=== PATIENT | male | born 1940 | race Caucasian/White ===

== ENCOUNTER 2018-08-25 11:00 | Inpatient (IN) ==
[2018-08-25 12:22] LABS: Basophils % 0.5 % (0.0-0.8); Eosinophils # 0.2 10*3/uL (0.0-0.87); Eosinophils % 4.2 % (0.00-10.9); Hematocrit 42.8 VOL% (42.0-52.0); Hemoglobin 14.7 GM/DL (14.0-18.0); Immature Granulocytes % 0.2 %; Immature Granulocytes Absolute 0.01 #; Lymphocytes % 18.6 % (21.2-54.2); Mean Corpuscular HGB Conc 34.3 GM/DL (32-36); Mean Corpuscular Hemoglobin 33 PG (27-34); Mean Corpuscular Volume 96.2 FL (87-102); Mean Platelet Volume 10.1 FL (9.6-12.0); Monocytes # 0.5 10*3/uL (0.11-0.8); Monocytes % 9.4 % (1.7-12.7); Neutrophils # 3.7 10*3/uL (1.4-7.4); Neutrophils % 67.1 % (38.7-73.9); Platelet Count 279 T/CUMM (130-400); Red Blood Count 4.45 MC/CUMM (3.8-5.5); Red Cell Distribution Width 12.4 % (9.3-17.3); White Blood Count 5.5 T/CUMM (4-12)
[2018-08-25 12:34] LABS: INR 0.9; PT Patient Result 9.4 SECS; Partial Thromboplastin Time 26.4 SECS (0-40)
[2018-08-25] MEDS ORDERED: methylPREDNISolone SOD SUC 125 MG/2 ML VIAL IV STA (13:27)
[2018-08-25] MEDS ORDERED: ALBUTEROL NEB SOLN 5 MG/ML 20 ML/BOTTLE CONT NEB STA (13:27)
[2018-08-25] MEDS ORDERED: THIAMINE INJ 100 MG, FOLIC ACID INJ 1 MG, MAGNESIUM SULF INJ 2 GM, MULTIVITAMIN INJ 10 ... IV ONE (13:57)
[2018-08-25 14:04] LABS: Albumin 3.1 G/DL (3.4-5.0); Bilirubin,Total 0.6 MG/DL (0.2-1.0); Calcium 8.8 MG/DL (8.5-10.1); Osmolality,Calculated 283.1 MOS/KG (273-304); Potassium 3.4 MMOL/L (3.5-5.1); Total Protein 7.3 G/DL (6.4-8.3)
[2018-08-25] MEDS ORDERED: LEVOFLOXACIN INJ 500 MG in PREMIX 1 EACH IV STA (14:12)
[2018-08-25 14:16] LABS: ABG Base Excess 7.2 MMOL/L (-2.5-2.5); ABG HCO3 30.7 MMOL/L (20-26); ABG Oxygen Saturation 92.7 % (95-100); ABG PCO2 39.4 MM HG (35-48); ABG PO2 68.9 MM HG (80-95); ABG TCO2 31.9 MMOL/L (23-27)
[2018-08-25] MEDS ORDERED: ACETAMINOPHEN 325 MG TABLET PO PRN (16:25)
[2018-08-25] MEDS ORDERED: SODIUM CHLORIDE 0.9% 1,000 ML IV SCH (16:25)
[2018-08-25] MEDS ORDERED: ONDANSETRON 4 MG/2 ML VIAL IV PRN (16:25)
[2018-08-25] MEDS ORDERED: cloNIDine 0.1 MG TABLET PO ONE (17:35)
[2018-08-25] MEDS ORDERED: MAGNESIUM SULF RIDER 1 GM in PREMIX 1 EACH IV STA (17:42)
[2018-08-25] MEDS ORDERED: cefTRIAXone 1,000 MG VIAL IV SCH (18:00)
[2018-08-25] MEDS ORDERED: INFLUENZA VIRUS VACCINE 0.5 ML SYRINGE IM ONE (18:24)
[2018-08-25] MEDS: cefTRIAXone 1,000 MG in SYRINGE 1 EACH IV SCH (18:42)
[2018-08-25] MEDS: ALBUTEROL/IPRATROPIUM 3 ML NEB RESP TX SCH ×2 (19:30→23:06)
[2018-08-25] MEDS: POTASSIUM CHLORIDE IV SCH (19:49)
[2018-08-25] MEDS: MAGNESIUM SULF IV SCH (19:49)
[2018-08-25] MEDS: [UNRECOGNIZED DRUG - OTHER] IV SCH (19:49)
[2018-08-25] MEDS: methylPREDNISolone SOD SUC 40 MG/1 ML VIAL IV SCH (20:18)
[2018-08-25] MEDS: CLORAZEPATE 7.5 MG TABLET PO SCH (20:18)
[2018-08-25] MEDS: DOCUSATE SODIUM 100 MG CAPSULE PO SCH (20:21)
[2018-08-25 22:19] LABS: Apearance,Urine Slightly Hazy (Clear); Bacteria,Urine Occasional /HPF (Few); Bilirubin,Urine Negative (Negative); Blood, Urine Small mg/dL (Negative); Glucose,Urine (UA) >=500 mg/dL (Negative); Hyaline Casts,Urine 11 /LPF (0-3); Ketones,Urine 5 mg/dL (Negative); Mucus,Urine Occasional /LPF (Occasional); Nitrite,Urine Positive (Negative); Protein,Urine 30 MG/DL; RBC,Urine 3 /HPF (0-4); Squamous Epithelial Cell,Urine Occasional /HPF (0-10); Urine Color Yellow (Yellow); WBC,Urine 41 /HPF (0-6)
[2018-08-26] MEDS: LORazepam 2 MG/1 ML VIAL IV PRN ×2 (01:18→20:11)
[2018-08-26] MEDS: ALBUTEROL/IPRATROPIUM 3 ML NEB RESP TX SCH ×6 (03:54→23:20)
[2018-08-26] MEDS: methylPREDNISolone SOD SUC 40 MG/1 ML VIAL IV SCH ×3 (04:21→20:13)
[2018-08-26] MEDS: MAGNESIUM SULF IV SCH ×2 (04:25→17:41)
[2018-08-26] MEDS: [UNRECOGNIZED DRUG - OTHER] IV SCH ×2 (04:25→17:41)
[2018-08-26] MEDS: POTASSIUM CHLORIDE IV SCH ×2 (04:25→17:41)
[2018-08-26 05:30] LABS: Hematocrit 34.3 VOL% (42.0-52.0); Immature Granulocytes % 0.4 %; Immature Granulocytes Absolute 0.02 #; Lymphocytes # 0.2 10*3/uL (1.4-4.0); Lymphocytes % 5.1 % (21.2-54.2); Mean Corpuscular Hemoglobin 33 PG (27-34); Mean Corpuscular Volume 95.5 FL (87-102); Mean Platelet Volume 10.6 FL (9.6-12.0); Monocytes # 0.3 10*3/uL (0.11-0.8); Monocytes % 6.4 % (1.7-12.7); Neutrophils % 88.1 % (38.7-73.9); Platelet Count 234 T/CUMM (130-400); Red Blood Count 3.59 MC/CUMM (3.8-5.5); Red Cell Distribution Width 12.2 % (9.3-17.3); White Blood Count 4.5 T/CUMM (4-12)
[2018-08-26 06:08] LABS: Albumin 2.5 G/DL (3.4-5.0); Bilirubin,Total 0.7 MG/DL (0.2-1.0); Calcium 7.6 MG/DL (8.5-10.1); Total Protein 6.2 G/DL (6.4-8.3)
[2018-08-26 06:09] LABS: Potassium 3.1 MMOL/L (3.5-5.1)
[2018-08-26] MEDS: POTASSIUM CHLORIDE 20 MEQ TABLET PO PRN ×4 (08:52→20:11)
[2018-08-26] MEDS: CYANOCOBALAMIN 500 MCG TABLET PO SCH (08:52)
[2018-08-26] MEDS: CLORAZEPATE 7.5 MG TABLET PO SCH ×3 (08:52→20:11)
[2018-08-26] MEDS: hydroCHLOROthiazide 25 MG TABLET PO SCH (08:53)
[2018-08-26] MEDS: LOSARTAN 50 MG TABLET PO SCH (08:53)
[2018-08-26] MEDS: DOCUSATE SODIUM 100 MG CAPSULE PO SCH (08:53)
[2018-08-26] MEDS: FOLIC ACID 1 MG TABLET PO SCH (08:53)
[2018-08-26] MEDS: PANTOPRAZOLE 40 MG TABLET PO SCH (08:54)
[2018-08-26] MEDS: THIAMINE 200 MG/2 ML VIAL IV SCH (08:54)
[2018-08-26 11:00] LABS: Free T4 (Free Thyroxine) 0.76 NG/DL (0.76-1.46); Thyroid Stimulating Hormone 0.488 uIU/ml (0.358-3.74)
[2018-08-26] MEDS: THEOPHYLLINE ER (24 HR) 200 MG CAPSULE PO SCH ×2 (12:27)
[2018-08-26] MEDS: MONTELUKAST 10 MG TABLET PO SCH (12:27)
[2018-08-26 12:50] LABS: Folate > 24.0 NG/ML (5.4-24.0); Vitamin B12 1638 PG/ML (211-911)
[2018-08-26] MEDS: cefTRIAXone 1,000 MG in SYRINGE 1 EACH IV SCH (17:34)
[2018-08-27] MEDS: ALBUTEROL/IPRATROPIUM 3 ML NEB RESP TX SCH ×2 (03:13→07:25)
[2018-08-27] MEDS: [UNRECOGNIZED DRUG - OTHER] IV SCH (05:27)
[2018-08-27] MEDS: MAGNESIUM SULF IV SCH (05:27)
[2018-08-27] MEDS: POTASSIUM CHLORIDE IV SCH (05:27)
[2018-08-27] MEDS: DOCUSATE SODIUM 100 MG CAPSULE PO SCH ×2 (05:27→08:52)
[2018-08-27] MEDS: methylPREDNISolone SOD SUC 40 MG/1 ML VIAL IV SCH (05:28)
[2018-08-27] MEDS: CLORAZEPATE 7.5 MG TABLET PO SCH (08:51)
[2018-08-27] MEDS: PANTOPRAZOLE 40 MG TABLET PO SCH (08:51)
[2018-08-27] MEDS: LOSARTAN 50 MG TABLET PO SCH (08:51)
[2018-08-27] MEDS: THIAMINE 200 MG/2 ML VIAL IV SCH (08:51)
[2018-08-27] MEDS: hydroCHLOROthiazide 25 MG TABLET PO SCH (08:51)
[2018-08-27] MEDS: CYANOCOBALAMIN 500 MCG TABLET PO SCH (08:51)
[2018-08-27] MEDS: MONTELUKAST 10 MG TABLET PO SCH (08:51)
[2018-08-27] MEDS: FOLIC ACID 1 MG TABLET PO SCH (08:52)
[2018-08-27 10:36] VITALS: BP 151/65
== END 2018-08-27 10:50 | disposition home health service (06) | DRG 192 ==
LOC: N.ED 11:00 → N.EDINP 14:09 → N.4E 15:00
PROVIDERS: ADMIT Family Medicine; ATTEND Family Medicine

== ENCOUNTER 2018-12-12 17:02 | Observation (INO) ==
[2018-12-12] MEDS ORDERED: LEVALBUTEROL 1.25 MG/3 ML NEB RESP TX STA (17:36)
[2018-12-12] MEDS ORDERED: methylPREDNISolone SOD SUC 40 MG/1 ML VIAL IV STA (17:36)
[2018-12-12 18:09] LABS: Basophils % 0.3 % (0.0-0.8); Eosinophils % 0.1 % (0.00-10.9); Hematocrit 37.2 VOL% (42.0-52.0); Immature Granulocytes % 0.5 %; Immature Granulocytes Absolute 0.05 #; Lymphocytes # 0.6 10*3/uL (1.4-4.0); Lymphocytes % 5.3 % (21.2-54.2); Mean Corpuscular HGB Conc 34.9 GM/DL (32-36); Mean Corpuscular Hemoglobin 35 PG (27-34); Mean Corpuscular Volume 99.2 FL (87-102); Mean Platelet Volume 10.9 FL (9.6-12.0); Monocytes # 0.9 10*3/uL (0.11-0.8); Monocytes % 8.1 % (1.7-12.7); Neutrophils # 9.3 10*3/uL (1.4-7.4); Neutrophils % 85.7 % (38.7-73.9); Platelet Count 253 T/CUMM (130-400); Red Blood Count 3.75 MC/CUMM (3.8-5.5); Red Cell Distribution Width 13.4 % (9.3-17.3); White Blood Count 10.9 T/CUMM (4-12)
[2018-12-12] MEDS ORDERED: cefTRIAXone 1,000 MG in SODIUM CHLORIDE 0.9% 100 ML IV STA (18:35)
[2018-12-12] MEDS ORDERED: AZITHROMYCIN INJ 500 MG in SODIUM CHLORIDE 0.9% 250 ML IV STA (18:36)
[2018-12-12] MEDS ORDERED: ACETAMINOPHEN 325 MG TABLET PO PRN (18:41)
[2018-12-12] MEDS ORDERED: ONDANSETRON 4 MG/2 ML VIAL IV PRN (18:41)
[2018-12-12 18:43] LABS: Calcium 8.9 MG/DL (8.5-10.1); Osmolality,Calculated 270.2 MOS/KG (273-304); Potassium 5.9 MMOL/L (3.5-5.1)
[2018-12-12] MEDS: ALBUTEROL 2.5 MG/3 ML NEB RESP TX PRN ×2 (20:00→23:28)
[2018-12-12] MEDS: LORazepam 2 MG/1 ML VIAL IV SCH (20:59)
[2018-12-12] MEDS: DEXTROSE 5% NACL 0.9% 1,000 ML IV SCH (20:59)
[2018-12-12] MEDS: DOCUSATE SODIUM 100 MG CAPSULE PO SCH (21:01)
[2018-12-13] MEDS: LORazepam 2 MG/1 ML VIAL IV SCH ×4 (01:02→13:32)
[2018-12-13] MEDS: ALBUTEROL 2.5 MG/3 ML NEB RESP TX PRN (03:29)
[2018-12-13] MEDS: DEXTROSE 5% NACL 0.9% 1,000 ML IV SCH (05:05)
[2018-12-13] MEDS: ALBUTEROL 2.5 MG/3 ML NEB RESP TX SCH ×5 (07:31→23:21)
[2018-12-13] MEDS: DOCUSATE SODIUM 100 MG CAPSULE PO SCH ×2 (09:17→21:01)
[2018-12-13] MEDS: PANTOPRAZOLE 40 MG TABLET PO SCH (09:18)
[2018-12-13] MEDS: methylPREDNISolone SOD SUC 125 MG/2 ML VIAL IV SCH ×2 (09:59→20:59)
[2018-12-13] MEDS ORDERED: CHOLESTYRAMINE/ASPARTAME 4 GM PACK PO PRN (10:06)
[2018-12-13] MEDS ORDERED: ALBUTEROL/IPRATROPIUM 3 ML NEB RESP TX PRN (10:06)
[2018-12-13] MEDS ORDERED: hydrALAZINE 20 MG/1 ML VIAL IV PRN (10:09)
[2018-12-13 10:33] LABS: Basophils % 0.1 % (0.0-0.8); Hematocrit 32.9 VOL% (42.0-52.0); Hemoglobin 11.3 GM/DL (14.0-18.0); Immature Granulocytes % 0.3 %; Immature Granulocytes Absolute 0.02 #; Lymphocytes # 0.7 10*3/uL (1.4-4.0); Lymphocytes % 9.5 % (21.2-54.2); Mean Corpuscular HGB Conc 34.3 GM/DL (32-36); Mean Corpuscular Hemoglobin 34 PG (27-34); Mean Corpuscular Volume 99.1 FL (87-102); Mean Platelet Volume 10.7 FL (9.6-12.0); Monocytes # 0.6 10*3/uL (0.11-0.8); Monocytes % 9.1 % (1.7-12.7); Neutrophils # 5.7 10*3/uL (1.4-7.4); Platelet Count 196 T/CUMM (130-400); Red Blood Count 3.32 MC/CUMM (3.8-5.5); Red Cell Distribution Width 13.2 % (9.3-17.3); White Blood Count 7.1 T/CUMM (4-12)
[2018-12-13 10:56] LABS: Calcium 8.2 MG/DL (8.5-10.1); Potassium 3.7 MMOL/L (3.5-5.1)
[2018-12-13] MEDS: cefTRIAXone 1,000 MG in SYRINGE 1 EACH IV SCH (17:23)
[2018-12-13] MEDS: AZITHROMYCIN INJ 250 MG in SODIUM CHLORIDE 0.9% 250 ML IV SCH (17:24)
[2018-12-13] MEDS: SODIUM CHLORIDE 0.9% 1,000 ML IV SCH (17:25)
[2018-12-13] MEDS ORDERED: PRIMIDONE 50 MG TABLET PO SCH (21:00)
[2018-12-13] MEDS: MAGNESIUM OXIDE 400 MG TABLET PO SCH (21:00)
[2018-12-13] MEDS: LORazepam 2 MG/1 ML VIAL IV PRN (21:00)
[2018-12-13] MEDS: busPIRone 10 MG TABLET PO SCH (21:00)
[2018-12-14] MEDS: ALBUTEROL 2.5 MG/3 ML NEB RESP TX SCH ×6 (03:37→23:06)
[2018-12-14 05:35] LABS: Basophils % 0.1 % (0.0-0.8); Hematocrit 32.5 VOL% (42.0-52.0); Hemoglobin 11.1 GM/DL (14.0-18.0); Immature Granulocytes % 0.7 %; Immature Granulocytes Absolute 0.06 #; Lymphocytes # 0.3 10*3/uL (1.4-4.0); Lymphocytes % 3.4 % (21.2-54.2); Mean Corpuscular HGB Conc 34.2 GM/DL (32-36); Mean Corpuscular Hemoglobin 34 PG (27-34); Mean Corpuscular Volume 99.4 FL (87-102); Mean Platelet Volume 10.7 FL (9.6-12.0); Monocytes # 0.4 10*3/uL (0.11-0.8); Monocytes % 4.7 % (1.7-12.7); Neutrophils # 7.9 10*3/uL (1.4-7.4); Neutrophils % 91.1 % (38.7-73.9); Platelet Count 212 T/CUMM (130-400); Red Blood Count 3.27 MC/CUMM (3.8-5.5); Red Cell Distribution Width 13.1 % (9.3-17.3); White Blood Count 8.6 T/CUMM (4-12)
[2018-12-14] MEDS: SODIUM CHLORIDE 0.9% 1,000 ML IV SCH (05:44)
[2018-12-14 06:00] LABS: Calcium 8.4 MG/DL (8.5-10.1); Osmolality,Calculated 284.5 MOS/KG (273-304)
[2018-12-14 06:29] LABS: Band Neutrophils 11 % (0-10); Lymphocytes 6 % (20-55); Platelet Estimate Normal; Segmented Neutrophils 78 % (50-85); Total Cells Counted 100
[2018-12-14 06:30] LABS: Anisocytosis Slight; Macrocytosis 1+
[2018-12-14] MEDS: PANTOPRAZOLE 40 MG TABLET PO SCH (11:41)
[2018-12-14] MEDS: busPIRone 10 MG TABLET PO SCH ×2 (11:41→20:21)
[2018-12-14] MEDS: LOSARTAN 50 MG TABLET PO SCH (11:41)
[2018-12-14] MEDS: MAGNESIUM OXIDE 400 MG TABLET PO SCH ×2 (11:41→20:21)
[2018-12-14] MEDS: LORazepam 2 MG/1 ML VIAL IV PRN ×2 (11:41→23:49)
[2018-12-14] MEDS: ASPIRIN EC 81 MG TABLET PO SCH (11:42)
[2018-12-14] MEDS: methylPREDNISolone SOD SUC 125 MG/2 ML VIAL IV SCH ×2 (11:42→20:21)
[2018-12-14] MEDS: DOCUSATE SODIUM 100 MG CAPSULE PO SCH ×2 (11:42→20:21)
[2018-12-14 15:27] LABS: Folate 13.5 NG/ML (5.4-24.0)
[2018-12-14] MEDS: AZITHROMYCIN INJ 250 MG in SODIUM CHLORIDE 0.9% 250 ML IV SCH (18:00)
[2018-12-14] MEDS: cefTRIAXone 1,000 MG in SYRINGE 1 EACH IV SCH (18:00)
[2018-12-14] MEDS ORDERED: traZODone 50 MG TABLET PO PRN (19:10)
[2018-12-14] MEDS: PRIMIDONE 50 MG TABLET PO SCH (20:25)
[2018-12-15] MEDS: SODIUM CHLORIDE 0.9% 1,000 ML IV SCH (02:38)
[2018-12-15] MEDS: ALBUTEROL 2.5 MG/3 ML NEB RESP TX SCH ×4 (03:10→14:05)
[2018-12-15] MEDS ORDERED: LORazepam 2 MG/1 ML VIAL IV ONE (07:10)
[2018-12-15] MEDS: methylPREDNISolone SOD SUC 125 MG/2 ML VIAL IV SCH (10:39)
[2018-12-15] MEDS: MAGNESIUM OXIDE 400 MG TABLET PO SCH (10:40)
[2018-12-15] MEDS: MEGESTROL 400 MG/10 ML UDCUP PO SCH ×2 (10:40→10:43)
[2018-12-15] MEDS: DOCUSATE SODIUM 100 MG CAPSULE PO SCH (10:40)
[2018-12-15] MEDS: ASPIRIN EC 81 MG TABLET PO SCH (10:40)
[2018-12-15] MEDS: PANTOPRAZOLE 40 MG TABLET PO SCH (10:40)
[2018-12-15] MEDS: busPIRone 10 MG TABLET PO SCH (10:40)
[2018-12-15] MEDS: LOSARTAN 50 MG TABLET PO SCH (10:41)
[2018-12-15] MEDS: PRIMIDONE 50 MG TABLET PO SCH (10:41)
[2018-12-15 11:50] VITALS: BP 163/67
[2018-12-15] MEDS ORDERED: ZALEPLON 5 MG CAPSULE PO SCH (21:00)
== END 2018-12-15 15:18 | disposition home or self-care (01) ==
LOC: N.ED 17:02 → N.EDINP 17:02 → N.2E 19:15
PROVIDERS: ADMIT Family Medicine; ATTEND Family Medicine

== ENCOUNTER 2018-12-31 13:38 | Inpatient (IN) ==
[2018-12-31] MEDS ORDERED: ONDANSETRON 4 MG/2 ML VIAL IV PRN (17:21)
[2018-12-31] MEDS ORDERED: ACETAMINOPHEN 325 MG TABLET PO PRN (17:21)
[2018-12-31] MEDS: LORazepam 2 MG/1 ML VIAL IV PRN ×2 (17:58→20:53)
[2018-12-31 18:21] LABS: Basophils % 0.3 % (0.0-0.8); Eosinophils # 0.1 10*3/uL (0.0-0.87); Hematocrit 38.1 VOL% (42.0-52.0); Hemoglobin 13.1 GM/DL (14.0-18.0); Immature Granulocytes % 0.3 %; Immature Granulocytes Absolute 0.02 #; Lymphocytes # 1.4 10*3/uL (1.4-4.0); Lymphocytes % 19.8 % (21.2-54.2); Mean Corpuscular HGB Conc 34.4 GM/DL (32-36); Mean Corpuscular Hemoglobin 35 PG (27-34); Mean Corpuscular Volume 101.6 FL (87-102); Mean Platelet Volume 10.8 FL (9.6-12.0); Monocytes # 0.8 10*3/uL (0.11-0.8); Monocytes % 11.7 % (1.7-12.7); Neutrophils # 4.6 10*3/uL (1.4-7.4); Neutrophils % 66.9 % (38.7-73.9); Platelet Count 244 T/CUMM (130-400); Red Blood Count 3.75 MC/CUMM (3.8-5.5); Red Cell Distribution Width 13.7 % (9.3-17.3); White Blood Count 6.8 T/CUMM (4-12)
[2018-12-31 18:30] LABS: Albumin 3.2 G/DL (3.4-5.0); Bilirubin,Total 0.6 MG/DL (0.2-1.0); Calcium 8.7 MG/DL (8.5-10.1); Potassium 3.8 MMOL/L (3.5-5.1); Total Protein 6.4 G/DL (6.4-8.3)
[2018-12-31] MEDS ORDERED: THIAMINE INJ 100 MG, FOLIC ACID INJ 1 MG, MAGNESIUM SULF INJ 2 GM, MULTIVITAMIN INJ 10 ... IV ONE (18:30)
[2018-12-31] MEDS: ALBUTEROL/IPRATROPIUM 3 ML NEB RESP TX SCH (19:20)
[2018-12-31] MEDS: DOCUSATE SODIUM 100 MG CAPSULE PO SCH (20:35)
[2018-12-31] MEDS: busPIRone 15 MG TABLET PO SCH (20:35)
[2018-12-31] MEDS: MAGNESIUM OXIDE 400 MG TABLET PO SCH (20:35)
[2018-12-31] MEDS: ENOXAPARIN 40 MG/0.4 ML SYRINGE SUBCUT SCH (20:37)
[2019-01-01] MEDS: SODIUM CHLORIDE 0.45% 1,000 ML IV SCH ×3 (02:18→19:46)
[2019-01-01] MEDS: LORazepam 2 MG/1 ML VIAL IV PRN (02:19)
[2019-01-01 03:10] LABS: Apearance,Urine Slightly Hazy (Clear); Bilirubin,Urine Negative (Negative); Blood, Urine Negative (Negative); Glucose,Urine (UA) Negative (Negative); Hyaline Casts,Urine 1 /LPF (0-3); Ketones,Urine Negative (Negative); Mucus,Urine Occasional /LPF (Occasional); Nitrite,Urine Negative (Negative); Protein,Urine Negative; RBC,Urine 3 /HPF (0-4); Squamous Epithelial Cell,Urine Occasional /HPF (0-10); Urine Color Amber (Yellow); Urine Specific Gravity 1.024 (1.001-1.035); WBC,Urine 2 /HPF (0-6)
[2019-01-01 04:55] LABS: Barbiturates Screen,Urine Positive (Negative); Benzodiazepines Screen,Urine Negative (Negative); Cannabinoid Screen,Urine Positive (Negative); Opiate Screen,Urine Negative (Negative); Phencyclidine Screen,Urine Negative (Negative)
[2019-01-01] MEDS: ALBUTEROL/IPRATROPIUM 3 ML NEB RESP TX SCH ×2 (07:03→20:40)
[2019-01-01] MEDS ORDERED: DICYCLOMINE 10 MG CAPSULE PO PRN (07:30)
[2019-01-01] MEDS ORDERED: HydrOXYzine PAMOATE 25 MG CAPSULE PO PRN (07:30)
[2019-01-01] MEDS ORDERED: METHOCARBAMOL 500 MG TABLET PO PRN (07:30)
[2019-01-01] MEDS: LORazepam 1 MG TABLET PO SCH ×3 (08:26→17:54)
[2019-01-01] MEDS ORDERED: LORazepam 0.5 MG TABLET PO ONE (08:30)
[2019-01-01] MEDS: DOCUSATE SODIUM 100 MG CAPSULE PO SCH ×2 (08:50→21:37)
[2019-01-01] MEDS: FOLIC ACID 1 MG TABLET PO SCH (08:50)
[2019-01-01] MEDS: PANTOPRAZOLE 40 MG TABLET PO SCH (08:50)
[2019-01-01] MEDS: busPIRone 15 MG TABLET PO SCH ×2 (08:50→21:37)
[2019-01-01] MEDS: ASPIRIN EC 81 MG TABLET PO SCH (08:50)
[2019-01-01] MEDS: LOSARTAN 50 MG TABLET PO SCH (08:50)
[2019-01-01] MEDS: chlordiazePOXIDE 25 MG CAPSULE PO SCH ×3 (08:50→19:42)
[2019-01-01] MEDS: MULTIVITAMIN (CENTRUM) TABLET PO SCH (08:50)
[2019-01-01] MEDS: MAGNESIUM OXIDE 400 MG TABLET PO SCH ×2 (08:50→21:37)
[2019-01-01] MEDS: LORazepam 0.5 MG TABLET PO SCH ×2 (18:03→21:37)
[2019-01-01] MEDS: ENOXAPARIN 40 MG/0.4 ML SYRINGE SUBCUT SCH (21:47)
[2019-01-02] MEDS: LORazepam 0.5 MG TABLET PO SCH ×4 (02:00→18:10)
[2019-01-02] MEDS: chlordiazePOXIDE 25 MG CAPSULE PO SCH ×4 (02:00→23:58)
[2019-01-02] MEDS: SODIUM CHLORIDE 0.45% 1,000 ML IV SCH ×2 (02:10→18:10)
[2019-01-02] MEDS: ALBUTEROL/IPRATROPIUM 3 ML NEB RESP TX SCH ×2 (06:58→19:10)
[2019-01-02] MEDS: ASPIRIN EC 81 MG TABLET PO SCH (08:51)
[2019-01-02] MEDS: DOCUSATE SODIUM 100 MG CAPSULE PO SCH ×2 (08:52→20:10)
[2019-01-02] MEDS: LOSARTAN 50 MG TABLET PO SCH (08:52)
[2019-01-02] MEDS: ESCITALOPRAM 10 MG TABLET PO SCH (08:52)
[2019-01-02] MEDS: PANTOPRAZOLE 40 MG TABLET PO SCH (08:52)
[2019-01-02] MEDS: MULTIVITAMIN (CENTRUM) TABLET PO SCH (08:52)
[2019-01-02] MEDS: MAGNESIUM OXIDE 400 MG TABLET PO SCH ×2 (08:52→20:10)
[2019-01-02] MEDS: FOLIC ACID 1 MG TABLET PO SCH (08:52)
[2019-01-02] MEDS: busPIRone 15 MG TABLET PO SCH ×2 (08:54→20:10)
[2019-01-02] MEDS ORDERED: amLODIPine 5 MG TABLET PO SCH (09:00)
[2019-01-02] MEDS ORDERED: amLODIPine 5 MG TABLET PO ONE (17:00)
[2019-01-02] MEDS: ENOXAPARIN 40 MG/0.4 ML SYRINGE SUBCUT SCH (20:11)
[2019-01-02] MEDS: amLODIPine 5 MG TABLET PO SCH (20:11)
[2019-01-03] MEDS: LORazepam 0.5 MG TABLET PO SCH ×4 (00:01→21:14)
[2019-01-03] MEDS: SODIUM CHLORIDE 0.45% 1,000 ML IV SCH ×2 (02:19→23:17)
[2019-01-03] MEDS: ALBUTEROL/IPRATROPIUM 3 ML NEB RESP TX SCH ×2 (06:43→19:43)
[2019-01-03] MEDS: amLODIPine 5 MG TABLET PO SCH ×2 (09:03→21:14)
[2019-01-03] MEDS: PANTOPRAZOLE 40 MG TABLET PO SCH (09:03)
[2019-01-03] MEDS: MULTIVITAMIN (CENTRUM) TABLET PO SCH (09:03)
[2019-01-03] MEDS: FOLIC ACID 1 MG TABLET PO SCH (09:03)
[2019-01-03] MEDS: LOSARTAN 50 MG TABLET PO SCH (09:03)
[2019-01-03] MEDS: ASPIRIN EC 81 MG TABLET PO SCH (09:03)
[2019-01-03] MEDS: DOCUSATE SODIUM 100 MG CAPSULE PO SCH ×2 (09:03→21:13)
[2019-01-03] MEDS: MAGNESIUM OXIDE 400 MG TABLET PO SCH ×2 (09:03→21:13)
[2019-01-03] MEDS: chlordiazePOXIDE 25 MG CAPSULE PO SCH ×3 (09:04→23:15)
[2019-01-03] MEDS: busPIRone 15 MG TABLET PO SCH ×2 (09:04→21:13)
[2019-01-03] MEDS: ESCITALOPRAM 10 MG TABLET PO SCH (09:04)
[2019-01-03 11:18] LABS: Basophils % 0.3 % (0.0-0.8); Eosinophils # 0.2 10*3/uL (0.0-0.87); Eosinophils % 2.9 % (0.00-10.9); Hematocrit 40.1 VOL% (42.0-52.0); Hemoglobin 13.5 GM/DL (14.0-18.0); Immature Granulocytes % 0.2 %; Immature Granulocytes Absolute 0.01 #; Lymphocytes # 1.5 10*3/uL (1.4-4.0); Lymphocytes % 24.9 % (21.2-54.2); Mean Corpuscular HGB Conc 33.7 GM/DL (32-36); Mean Corpuscular Hemoglobin 35 PG (27-34); Mean Corpuscular Volume 103.9 FL (87-102); Mean Platelet Volume 10.2 FL (9.6-12.0); Monocytes # 0.6 10*3/uL (0.11-0.8); Monocytes % 10.3 % (1.7-12.7); Neutrophils # 3.6 10*3/uL (1.4-7.4); Neutrophils % 61.4 % (38.7-73.9); Platelet Count 256 T/CUMM (130-400); Red Blood Count 3.86 MC/CUMM (3.8-5.5); Red Cell Distribution Width 13.1 % (9.3-17.3); White Blood Count 5.9 T/CUMM (4-12)
[2019-01-03 11:40] LABS: Calcium 8.8 MG/DL (8.5-10.1); Osmolality,Calculated 286.7 MOS/KG (273-304); Potassium 3.6 MMOL/L (3.5-5.1)
[2019-01-03 11:58] LABS: Alanine Aminotransferase 69 U/L (16-61); Albumin 3.1 G/DL (3.4-5.0); Alkaline Phosphatase 50 U/L (45-117); Aspartate Amino Transferase 34 U/L (0-37); Bilirubin,Indirect 0.3 MG/DL (0.0-1.0); Bilirubin,Total < 0.39 MG/DL (0.2-1.0)
[2019-01-03] MEDS: ENOXAPARIN 40 MG/0.4 ML SYRINGE SUBCUT SCH (21:14)
[2019-01-04] MEDS: ALBUTEROL/IPRATROPIUM 3 ML NEB RESP TX SCH ×2 (07:48→19:17)
[2019-01-04] MEDS: SODIUM CHLORIDE 0.45% 1,000 ML IV SCH (10:06)
[2019-01-04] MEDS: busPIRone 15 MG TABLET PO SCH ×2 (10:06→21:09)
[2019-01-04] MEDS: ESCITALOPRAM 10 MG TABLET PO SCH (10:07)
[2019-01-04] MEDS: amLODIPine 5 MG TABLET PO SCH ×2 (10:07→21:09)
[2019-01-04] MEDS: MAGNESIUM OXIDE 400 MG TABLET PO SCH ×2 (10:07→21:09)
[2019-01-04] MEDS: ASPIRIN EC 81 MG TABLET PO SCH (10:07)
[2019-01-04] MEDS: FOLIC ACID 1 MG TABLET PO SCH (10:08)
[2019-01-04] MEDS: PANTOPRAZOLE 40 MG TABLET PO SCH (10:08)
[2019-01-04] MEDS: LOSARTAN 50 MG TABLET PO SCH (10:08)
[2019-01-04] MEDS: MULTIVITAMIN (CENTRUM) TABLET PO SCH (10:10)
[2019-01-04] MEDS: DOCUSATE SODIUM 100 MG CAPSULE PO SCH ×2 (10:10→21:09)
[2019-01-04] MEDS: ENOXAPARIN 40 MG/0.4 ML SYRINGE SUBCUT SCH (21:09)
[2019-01-05] MEDS: SODIUM CHLORIDE 0.45% 1,000 ML IV SCH ×2 (00:02→09:00)
[2019-01-05] MEDS: ALBUTEROL/IPRATROPIUM 3 ML NEB RESP TX SCH (07:05)
[2019-01-05] MEDS: DOCUSATE SODIUM 100 MG CAPSULE PO SCH (08:56)
[2019-01-05] MEDS: busPIRone 15 MG TABLET PO SCH (08:56)
[2019-01-05] MEDS: MAGNESIUM OXIDE 400 MG TABLET PO SCH (08:56)
[2019-01-05] MEDS: ESCITALOPRAM 10 MG TABLET PO SCH (08:56)
[2019-01-05] MEDS: MULTIVITAMIN (CENTRUM) TABLET PO SCH (08:57)
[2019-01-05] MEDS: LOSARTAN 50 MG TABLET PO SCH (08:57)
[2019-01-05] MEDS: amLODIPine 5 MG TABLET PO SCH (08:57)
[2019-01-05] MEDS: FOLIC ACID 1 MG TABLET PO SCH (08:57)
[2019-01-05] MEDS: PANTOPRAZOLE 40 MG TABLET PO SCH (08:57)
[2019-01-05] MEDS: ASPIRIN EC 81 MG TABLET PO SCH (11:06)
[2019-01-05 13:34] VITALS: BP 140/65
[2019-01-05] MEDS ORDERED: TAMSULOSIN 0.4 MG CAPSULE PO SCH (21:00)
== END 2019-01-05 15:18 | DRG 897 ==
LOC: N.4E 14:14
PROVIDERS: ADMIT Family Medicine; ATTEND Family Medicine

== ENCOUNTER 2020-01-11 11:39 | Inpatient (IN) ==
[2020-01-11] MEDS ORDERED: hydrALAZINE 20 MG/1 ML VIAL IV PRN (12:50)
[2020-01-11] MEDS ORDERED: ONDANSETRON 4 MG/2 ML VIAL IV PRN (12:50)
[2020-01-11] MEDS ORDERED: PROMETHAZINE 25 MG/1 ML VIAL IM PRN (12:50)
[2020-01-11] MEDS ORDERED: DICYCLOMINE 10 MG CAPSULE PO PRN (12:53)
[2020-01-11] MEDS ORDERED: THIAMINE INJ 100 MG, FOLIC ACID INJ 1 MG, MULTIVITAMIN INJ 10 ML in SODIUM CHLORIDE 0.9... IV ONE (13:00)
[2020-01-11] MEDS ORDERED: chlordiazePOXIDE 25 MG CAPSULE PO SCH (13:00)
[2020-01-11 13:37] LABS: Basophils % 0.2 % (0.0-0.8); Eosinophils # 0.2 10*3/uL (0.0-0.87); Eosinophils % 3.5 % (0.00-10.9); Hematocrit 41.7 VOL% (42.0-52.0); Hemoglobin 13.7 GM/DL (14.0-18.0); Immature Granulocytes % 0.7 %; Immature Granulocytes Absolute 0.04 #; Lymphocytes # 0.8 10*3/uL (1.4-4.0); Lymphocytes % 14.7 % (21.2-54.2); Mean Corpuscular HGB Conc 32.9 GM/DL (32-36); Mean Platelet Volume 10.5 FL (9.6-12.0); Monocytes % 9.9 % (1.7-12.7); Platelet Count 182 T/CUMM (130-400); Red Blood Count 4.09 MC/CUMM (3.8-5.5); Red Cell Distribution Width 13.2 % (9.3-17.3); White Blood Count 5.6 T/CUMM (4-12)
[2020-01-11 13:57] LABS: Calcium 8.5 MG/DL (8.5-10.1); Osmolality,Calculated 275.7 MOS/KG (273-304)
[2020-01-11] MEDS ORDERED: MAGNESIUM SULF RIDER 2 GM in PREMIX 1 EACH IV ONE (14:07)
[2020-01-11] MEDS: LORazepam 1 MG TABLET PO SCH ×3 (14:37→22:16)
[2020-01-11] MEDS: NICOTINE 21 MG/24 HR PATCH TRANSDERM SCH (14:41)
[2020-01-11] MEDS: LORazepam 2 MG/1 ML VIAL IV PRN (23:25)
[2020-01-12] MEDS: LORazepam 1 MG TABLET PO SCH ×5 (03:10→20:24)
[2020-01-12] MEDS: ACETAMINOPHEN 325 MG TABLET PO PRN ×4 (05:59→20:23)
[2020-01-12] MEDS: PANTOPRAZOLE 40 MG TABLET PO SCH (08:27)
[2020-01-12] MEDS: NICOTINE 21 MG/24 HR PATCH TRANSDERM SCH (08:27)
[2020-01-12] MEDS: METHOCARBAMOL 750 MG TABLET PO PRN ×2 (08:27→18:54)
[2020-01-12] MEDS: HydrOXYzine PAMOATE 25 MG CAPSULE PO PRN (20:26)
[2020-01-12] MEDS: LORazepam 2 MG/1 ML VIAL IV PRN (22:22)
[2020-01-12] MEDS ORDERED: ZALEPLON 5 MG CAPSULE PO ONE (23:22)
[2020-01-13] MEDS: LORazepam 1 MG TABLET PO SCH ×4 (02:50→22:13)
[2020-01-13] MEDS: NICOTINE 21 MG/24 HR PATCH TRANSDERM SCH (08:52)
[2020-01-13] MEDS: PANTOPRAZOLE 40 MG TABLET PO SCH (08:52)
[2020-01-13] MEDS ORDERED: ALBUTEROL/IPRATROPIUM 3 ML NEB RESP TX PRN (15:39)
[2020-01-13] MEDS: METHOCARBAMOL 750 MG TABLET PO PRN (15:42)
[2020-01-13] MEDS ORDERED: MULTIVITAMIN (BEROCCA) TABLET PO SCH (15:45)
[2020-01-13] MEDS ORDERED: POTASSIUM CHLORIDE 10 MEQ TABLET PO SCH (16:00)
[2020-01-13] MEDS ORDERED: FLUoxetine 10 MG CAPSULE PO SCH (16:00)
[2020-01-13] MEDS ORDERED: FUROSEMIDE 20 MG TABLET PO SCH (16:00)
[2020-01-13] MEDS: HydrOXYzine PAMOATE 25 MG CAPSULE PO PRN (19:21)
[2020-01-13] MEDS: ACETAMINOPHEN 325 MG TABLET PO PRN (19:21)
[2020-01-13] MEDS ORDERED: ZALEPLON 5 MG CAPSULE PO PRN (20:40)
[2020-01-13] MEDS: MAGNESIUM OXIDE 400 MG TABLET PO SCH (21:33)
[2020-01-13] MEDS: busPIRone 15 MG TABLET PO SCH (21:33)
[2020-01-13] MEDS: PRIMIDONE 50 MG TABLET PO SCH (21:33)
[2020-01-14] MEDS: LORazepam 1 MG TABLET PO SCH (06:39)
[2020-01-14] MEDS ORDERED: PANTOPRAZOLE 40 MG TABLET PO SCH (09:00)
[2020-01-14] MEDS ORDERED: ASPIRIN EC 81 MG TABLET PO SCH (09:00)
[2020-01-14] MEDS ORDERED: MULTIVITAMIN (BEROCCA) TABLET PO SCH (09:00)
[2020-01-14] MEDS ORDERED: FLUoxetine 10 MG CAPSULE PO SCH (09:00)
[2020-01-14] MEDS ORDERED: LOSARTAN 50 MG TABLET PO SCH (09:00)
[2020-01-14] MEDS ORDERED: FUROSEMIDE 20 MG TABLET PO SCH (09:00)
[2020-01-14] MEDS ORDERED: POTASSIUM CHLORIDE 10 MEQ TABLET PO SCH (09:00)
[2020-01-14 09:17] VITALS: BP 194/92
[2020-01-14] MEDS: busPIRone 15 MG TABLET PO SCH (09:49)
[2020-01-14] MEDS: MAGNESIUM OXIDE 400 MG TABLET PO SCH (09:50)
[2020-01-14] MEDS: PRIMIDONE 50 MG TABLET PO SCH (09:50)
[2020-01-14] MEDS: NICOTINE 21 MG/24 HR PATCH TRANSDERM SCH (09:51)
== END 2020-01-14 11:20 | disposition home or self-care (01) | DRG 897 ==
LOC: N.4E 12:14
PROVIDERS: ADMIT Internal Medicine; ATTEND Internal Medicine

== ENCOUNTER 2021-01-29 08:57 | Inpatient (IN) ==
[2021-01-29] MEDS ORDERED: NITROGLYCERIN SL 0.4 MG TABLET SL PRN (09:22)
[2021-01-29] MEDS ORDERED: methylPREDNISolone SOD SUC 125 MG/2 ML VIAL IV STA (09:23)
[2021-01-29] MEDS ORDERED: ALBUTEROL/IPRATROPIUM 3 ML NEB RESP TX STA (09:23)
[2021-01-29 09:36] LABS: Basophils % 0.3 % (0.0-0.8); Eosinophils % 0.3 % (0.00-10.9); Hematocrit 43.8 VOL% (42.0-52.0); Hemoglobin 14.7 GM/DL (14.0-18.0); Immature Granulocytes % 0.5 %; Immature Granulocytes Absolute 0.04 #; Lymphocytes # 0.8 10*3/uL (1.4-4.0); Lymphocytes % 10.5 % (21.2-54.2); Mean Corpuscular HGB Conc 33.6 GM/DL (32-36); Mean Platelet Volume 10.6 FL (9.6-12.0); Monocytes % 6.7 % (1.7-12.7); Neutrophils % 81.7 % (38.7-73.9); Platelet Count 199 T/CUMM (130-400); Red Blood Count 4.38 MC/CUMM (3.8-5.5); Red Cell Distribution Width 16.5 % (9.3-17.3); White Blood Count 7.9 T/CUMM (4-12)
[2021-01-29 09:44] LABS: INR 1.1; PT Patient Result 11.6 SECS (9.8-11.9)
[2021-01-29 09:55] LABS: Albumin 3.2 G/DL (3.4-5.0); Bilirubin,Total 0.5 MG/DL (0.2-1.0); Calcium 7.9 MG/DL (8.5-10.1); Osmolality,Calculated 285.3 MOS/KG (273-304); Potassium 3.2 MMOL/L (3.5-5.1); Total Protein 6.2 G/DL (6.4-8.2)
[2021-01-29] MEDS ORDERED: ONDANSETRON 4 MG/2 ML VIAL IV PRN (10:15)
[2021-01-29] MEDS ORDERED: ACETAMINOPHEN 325 MG TABLET PO PRN (10:15)
[2021-01-29] MEDS ORDERED: PIPERACILLIN/TAZOBACTAM 3,375 MG in SODIUM CHLORIDE 0.9% 100 ML IV SCH (10:30)
[2021-01-29] MEDS: ALBUTEROL/IPRATROPIUM 3 ML NEB RESP TX SCH ×3 (11:17→19:57)
[2021-01-29] MEDS ORDERED: ENOXAPARIN 40 MG/0.4 ML SYRINGE SUBCUT SCH (12:00)
[2021-01-29] MEDS: SODIUM CHLORIDE 0.45% 1,000 ML IV SCH (12:09)
[2021-01-29 13:23] LABS: CKMB % 9.7 %; Troponin I 0.042 NG/ML (0.00-0.045)
[2021-01-29] MEDS: methylPREDNISolone SOD SUC 40 MG/1 ML VIAL IV SCH ×2 (14:14→21:50)
[2021-01-29 14:52] LABS: CKMB % 9.5 %; Troponin I 0.054 NG/ML (0.00-0.045)
[2021-01-29] MEDS: FERROUS SULFATE 325 MG TABLET PO SCH (16:59)
[2021-01-29 18:07] LABS: Troponin I 0.048 NG/ML (0.00-0.045)
[2021-01-29] MEDS: busPIRone 15 MG TABLET PO SCH (20:25)
[2021-01-29] MEDS: MAGNESIUM OXIDE 400 MG TABLET PO SCH (20:25)
[2021-01-29] MEDS: PIPERACILLIN/TAZOBACTAM 3,375 MG in SODIUM CHLORIDE 0.9% 100 ML IV SCH (20:25)
[2021-01-29] MEDS: DOCUSATE SODIUM 100 MG CAPSULE PO SCH (20:26)
[2021-01-29] MEDS: PRIMIDONE 50 MG TABLET PO SCH (20:26)
[2021-01-29] MEDS ORDERED: amLODIPine 5 MG TABLET PO ONE (20:34)
[2021-01-29] MEDS ORDERED: MELATONIN 3 MG TABLET PO PRN (20:36)
[2021-01-29 20:54] LABS: Troponin I 0.028 NG/ML (0.00-0.045)
[2021-01-30] MEDS: ALBUTEROL/IPRATROPIUM 3 ML NEB RESP TX SCH ×4 (00:39→10:54)
[2021-01-30] MEDS: PIPERACILLIN/TAZOBACTAM 3,375 MG in SODIUM CHLORIDE 0.9% 100 ML IV SCH (04:16)
[2021-01-30] MEDS ORDERED: ALBUTEROL/IPRATROPIUM 3 ML NEB RESP TX ONE (04:34)
[2021-01-30] MEDS: methylPREDNISolone SOD SUC 40 MG/1 ML VIAL IV SCH (05:45)
[2021-01-30] MEDS: SODIUM CHLORIDE 0.45% 1,000 ML IV SCH (05:52)
[2021-01-30] MEDS ORDERED: FERROUS SULFATE 325 MG TABLET PO SCH (08:00)
[2021-01-30 08:37] VITALS: BP 148/73
[2021-01-30] MEDS ORDERED: LOSARTAN 50 MG TABLET PO SCH (09:00)
[2021-01-30] MEDS ORDERED: POTASSIUM CHLORIDE 10 MEQ TABLET PO SCH (09:00)
[2021-01-30] MEDS ORDERED: FLUoxetine 10 MG CAPSULE PO SCH (09:00)
[2021-01-30] MEDS ORDERED: FUROSEMIDE 20 MG TABLET PO SCH (09:00)
[2021-01-30] MEDS ORDERED: PANTOPRAZOLE 40 MG TABLET PO SCH (09:00)
[2021-01-30] MEDS ORDERED: NICOTINE 14 MG/24 HR PATCH TRANSDERM SCH (09:00)
[2021-01-30] MEDS ORDERED: ASPIRIN EC 81 MG TABLET PO SCH (09:00)
[2021-01-30] MEDS: MAGNESIUM OXIDE 400 MG TABLET PO SCH (10:00)
[2021-01-30] MEDS: PRIMIDONE 50 MG TABLET PO SCH (10:00)
[2021-01-30] MEDS: DOCUSATE SODIUM 100 MG CAPSULE PO SCH (10:00)
[2021-01-30] MEDS: busPIRone 15 MG TABLET PO SCH (10:33)
[2021-01-30] MEDS: FERROUS SULFATE 325 MG TABLET PO SCH (10:38)
== END 2021-01-30 12:03 | disposition home or self-care (01) | DRG 190 ==
LOC: N.ED 08:57 → N.TELEN 11:17
PROVIDERS: ADMIT Family Medicine; ATTEND Family Medicine

== ENCOUNTER 2021-02-03 19:47 | Inpatient (IN) ==
[2021-02-03] MEDS ORDERED: SODIUM CHLORIDE 0.9% 500 ML IV STA (20:31)
[2021-02-03 20:37] LABS: Basophils % 0.2 % (0.0-0.8); Eosinophils % 0.1 % (0.00-10.9); Hemoglobin 15.7 GM/DL (14.0-18.0); Immature Granulocytes Absolute 0.22 #; Lymphocytes # 1.1 10*3/uL (1.4-4.0); Lymphocytes % 4.9 % (21.2-54.2); Mean Corpuscular HGB Conc 34.9 GM/DL (32-36); Mean Corpuscular Volume 96.4 FL (87-102); Mean Platelet Volume 10.5 FL (9.6-12.0); Monocytes % 7.7 % (1.7-12.7); Neutrophils % 86.1 % (38.7-73.9); Platelet Count 202 T/CUMM (130-400); Red Blood Count 4.67 MC/CUMM (3.8-5.5); Red Cell Distribution Width 15.9 % (9.3-17.3); White Blood Count 22.2 T/CUMM (4-12)
[2021-02-03 20:51] LABS: Albumin 3.3 G/DL (3.4-5.0); Bilirubin,Total 1.2 MG/DL (0.2-1.0); Osmolality,Calculated 263.7 MOS/KG (273-304); Potassium 3.3 MMOL/L (3.5-5.1); Total Protein 6.4 G/DL (6.4-8.2)
[2021-02-03 21:07] LABS: Lymphocytes 7 % (20-55); Segmented Neutrophils 88 % (50-85); Total Cells Counted 100
[2021-02-03 21:08] LABS: Platelet Estimate Adequate
[2021-02-03] MEDS ORDERED: VANCOMYCIN 50 MG/ML 60 ML/BOTTLE PO ONE (22:54)
[2021-02-03] MEDS ORDERED: ONDANSETRON 4 MG/2 ML VIAL IV PRN (23:02)
[2021-02-04] MEDS: DEXT 5% NACL 0.45% KCL 20 MEQ 20 MEQ/1,000 ML BAG IV SCH ×2 (00:21→12:59)
[2021-02-04] MEDS ORDERED: ALBUTEROL/IPRATROPIUM 3 ML NEB RESP TX PRN (00:47)
[2021-02-04] MEDS: VANCOMYCIN 50 MG/ML 60 ML/BOTTLE PO SCH ×4 (04:02→22:27)
[2021-02-04 06:39] LABS: Basophils % 0.1 % (0.0-0.8); Eosinophils # 0.1 10*3/uL (0.0-0.87); Eosinophils % 0.5 % (0.00-10.9); Hemoglobin 14.7 GM/DL (14.0-18.0); Immature Granulocytes % 0.8 %; Immature Granulocytes Absolute 0.14 #; Lymphocytes # 0.7 10*3/uL (1.4-4.0); Mean Corpuscular HGB Conc 34.2 GM/DL (32-36); Mean Corpuscular Volume 96.8 FL (87-102); Mean Platelet Volume 10.6 FL (9.6-12.0); Monocytes % 8.7 % (1.7-12.7); Neutrophils % 85.9 % (38.7-73.9); Platelet Count 179 T/CUMM (130-400); Red Blood Count 4.44 MC/CUMM (3.8-5.5); Red Cell Distribution Width 15.7 % (9.3-17.3); White Blood Count 17.2 T/CUMM (4-12)
[2021-02-04 07:09] LABS: Albumin 2.7 G/DL (3.4-5.0); Bilirubin,Total 1.7 MG/DL (0.2-1.0); Calcium 7.9 MG/DL (8.5-10.1); Potassium 3.4 MMOL/L (3.5-5.1); Total Protein 5.6 G/DL (6.4-8.2)
[2021-02-04 08:03] LABS: Anisocytosis 1+; Band Neutrophils 13 % (0-10); Eosinophils 1 % (0-10); Lymphocytes 7 % (20-55); Macrocytosis 1+; Platelet Estimate Normal; Poikilocytosis Slight; Segmented Neutrophils 72 % (50-85); Total Cells Counted 100
[2021-02-04] MEDS: PANTOPRAZOLE 40 MG TABLET PO SCH (10:11)
[2021-02-04] MEDS: metroNIDAZOLE INJ 500 MG in PREMIX 1 EACH IV SCH ×2 (12:05→21:08)
[2021-02-04] MEDS: POTASSIUM CHLORIDE 20 MEQ TABLET PO PRN ×3 (12:05→17:29)
[2021-02-04] MEDS: BUDESONIDE 0.25 MG/2 ML NEB RESP TX SCH ×2 (13:20→20:40)
[2021-02-04] MEDS: ALBUTEROL/IPRATROPIUM 3 ML NEB RESP TX SCH ×2 (13:20→20:40)
[2021-02-04] MEDS ORDERED: ACETAMINOPHEN 325 MG TABLET PO PRN (13:48)
[2021-02-04] MEDS ORDERED: NITROGLYCERIN SL 0.4 MG TABLET SL PRN (13:48)
[2021-02-04] MEDS ORDERED: MELATONIN 3 MG TABLET PO PRN (13:48)
[2021-02-04] MEDS ORDERED: POTASSIUM CHLORIDE 10 MEQ TABLET PO SCH (14:00)
[2021-02-04] MEDS: busPIRone 15 MG TABLET PO SCH ×2 (14:55→21:07)
[2021-02-04] MEDS: NICOTINE 14 MG/24 HR PATCH TRANSDERM SCH (14:55)
[2021-02-04] MEDS: FLUoxetine 10 MG CAPSULE PO SCH (14:55)
[2021-02-04] MEDS: PRIMIDONE 50 MG TABLET PO SCH ×2 (14:55→21:08)
[2021-02-04] MEDS: ZALEPLON 5 MG CAPSULE PO SCH (21:08)
[2021-02-04] MEDS: FERROUS SULFATE 325 MG TABLET PO SCH (21:08)
[2021-02-05] MEDS: ALBUTEROL/IPRATROPIUM 3 ML NEB RESP TX SCH ×4 (00:26→20:06)
[2021-02-05] MEDS: DEXT 5% NACL 0.45% KCL 20 MEQ 20 MEQ/1,000 ML BAG IV SCH ×3 (04:09→15:50)
[2021-02-05] MEDS: metroNIDAZOLE INJ 500 MG in PREMIX 1 EACH IV SCH ×3 (05:31→22:15)
[2021-02-05] MEDS: VANCOMYCIN 50 MG/ML 60 ML/BOTTLE PO SCH ×4 (05:32→22:16)
[2021-02-05 06:36] LABS: Basophils % 0.2 % (0.0-0.8); Eosinophils # 0.1 10*3/uL (0.0-0.87); Eosinophils % 0.6 % (0.00-10.9); Hemoglobin 12.9 GM/DL (14.0-18.0); Immature Granulocytes % 0.4 %; Immature Granulocytes Absolute 0.05 #; Lymphocytes # 0.6 10*3/uL (1.4-4.0); Lymphocytes % 4.4 % (21.2-54.2); Mean Corpuscular HGB Conc 33.9 GM/DL (32-36); Mean Corpuscular Volume 99.2 FL (87-102); Mean Platelet Volume 11.2 FL (9.6-12.0); Monocytes % 6.5 % (1.7-12.7); Neutrophils % 87.9 % (38.7-73.9); Platelet Count 168 T/CUMM (130-400); Red Blood Count 3.83 MC/CUMM (3.8-5.5); Red Cell Distribution Width 15.6 % (9.3-17.3); White Blood Count 12.9 T/CUMM (4-12)
[2021-02-05 07:06] LABS: Albumin 2.3 G/DL (3.4-5.0); Bilirubin,Total 0.9 MG/DL (0.2-1.0); Calcium 7.6 MG/DL (8.5-10.1); Osmolality,Calculated 277.5 MOS/KG (273-304); Potassium 3.2 MMOL/L (3.5-5.1)
[2021-02-05] MEDS: BUDESONIDE 0.25 MG/2 ML NEB RESP TX SCH ×2 (07:16→20:06)
[2021-02-05 07:34] LABS: Anisocytosis 1+; Band Neutrophils 23 % (0-10); Eosinophils 1 % (0-10); Lymphocytes 5 % (20-55); Platelet Estimate Normal; Segmented Neutrophils 64 % (50-85); Total Cells Counted 100
[2021-02-05 07:35] LABS: Macrocytosis 1+; Poikilocytosis Slight
[2021-02-05] MEDS: NICOTINE 14 MG/24 HR PATCH TRANSDERM SCH (09:09)
[2021-02-05] MEDS: PANTOPRAZOLE 40 MG TABLET PO SCH (09:09)
[2021-02-05] MEDS: FLUoxetine 10 MG CAPSULE PO SCH (09:09)
[2021-02-05] MEDS: PRIMIDONE 50 MG TABLET PO SCH ×2 (09:09→20:13)
[2021-02-05] MEDS: busPIRone 15 MG TABLET PO SCH ×2 (09:09→20:13)
[2021-02-05] MEDS: FERROUS SULFATE 325 MG TABLET PO SCH ×2 (09:09→20:13)
[2021-02-05] MEDS: ASPIRIN EC 81 MG TABLET PO SCH (09:09)
[2021-02-05] MEDS: POTASSIUM CHLORIDE 20 MEQ TABLET PO PRN ×4 (09:14→15:55)
[2021-02-05] MEDS: ZALEPLON 5 MG CAPSULE PO SCH (20:12)
[2021-02-06] MEDS: ALBUTEROL/IPRATROPIUM 3 ML NEB RESP TX SCH ×4 (01:33→19:57)
[2021-02-06] MEDS: metroNIDAZOLE INJ 500 MG in PREMIX 1 EACH IV SCH ×3 (04:27→20:45)
[2021-02-06] MEDS: DEXT 5% NACL 0.45% KCL 20 MEQ 20 MEQ/1,000 ML BAG IV SCH ×3 (04:28→18:17)
[2021-02-06] MEDS: VANCOMYCIN 50 MG/ML 60 ML/BOTTLE PO SCH ×4 (04:28→22:20)
[2021-02-06 05:21] LABS: Basophils % 0.3 % (0.0-0.8); Eosinophils # 0.2 10*3/uL (0.0-0.87); Eosinophils % 1.5 % (0.00-10.9); Hematocrit 41.1 VOL% (42.0-52.0); Hemoglobin 13.5 GM/DL (14.0-18.0); Immature Granulocytes % 0.7 %; Immature Granulocytes Absolute 0.07 #; Lymphocytes # 1.1 10*3/uL (1.4-4.0); Lymphocytes % 11.1 % (21.2-54.2); Mean Corpuscular HGB Conc 32.8 GM/DL (32-36); Mean Corpuscular Volume 101.2 FL (87-102); Monocytes % 7.9 % (1.7-12.7); Neutrophils % 78.5 % (38.7-73.9); Platelet Count 172 T/CUMM (130-400); Red Blood Count 4.06 MC/CUMM (3.8-5.5); Red Cell Distribution Width 15.8 % (9.3-17.3); White Blood Count 9.8 T/CUMM (4-12)
[2021-02-06 05:44] LABS: Albumin 2.5 G/DL (3.4-5.0); Bilirubin,Total 0.7 MG/DL (0.2-1.0); Calcium 8.1 MG/DL (8.5-10.1); Osmolality,Calculated 278.4 MOS/KG (273-304); Potassium 4.2 MMOL/L (3.5-5.1); Total Protein 5.3 G/DL (6.4-8.2)
[2021-02-06] MEDS: BUDESONIDE 0.25 MG/2 ML NEB RESP TX SCH ×2 (07:45→19:57)
[2021-02-06] MEDS: NICOTINE 14 MG/24 HR PATCH TRANSDERM SCH (08:27)
[2021-02-06] MEDS: FERROUS SULFATE 325 MG TABLET PO SCH ×2 (08:28→20:46)
[2021-02-06] MEDS: busPIRone 15 MG TABLET PO SCH ×2 (08:28→20:46)
[2021-02-06] MEDS: ASPIRIN EC 81 MG TABLET PO SCH (08:29)
[2021-02-06] MEDS: PANTOPRAZOLE 40 MG TABLET PO SCH (08:29)
[2021-02-06] MEDS: FLUoxetine 10 MG CAPSULE PO SCH (08:29)
[2021-02-06] MEDS: PRIMIDONE 50 MG TABLET PO SCH ×2 (08:29→20:46)
[2021-02-06] MEDS: ZALEPLON 5 MG CAPSULE PO SCH (20:46)
[2021-02-07] MEDS: ALBUTEROL/IPRATROPIUM 3 ML NEB RESP TX SCH ×2 (00:32→07:20)
[2021-02-07] MEDS: VANCOMYCIN 50 MG/ML 60 ML/BOTTLE PO SCH (04:42)
[2021-02-07] MEDS: metroNIDAZOLE INJ 500 MG in PREMIX 1 EACH IV SCH (04:42)
[2021-02-07] MEDS: BUDESONIDE 0.25 MG/2 ML NEB RESP TX SCH (07:20)
[2021-02-07 07:38] VITALS: BP 156/75
[2021-02-07] MEDS: NICOTINE 14 MG/24 HR PATCH TRANSDERM SCH (08:18)
[2021-02-07] MEDS: DEXT 5% NACL 0.45% KCL 20 MEQ 20 MEQ/1,000 ML BAG IV SCH (08:19)
[2021-02-07] MEDS: FLUoxetine 10 MG CAPSULE PO SCH (08:19)
[2021-02-07] MEDS: PRIMIDONE 50 MG TABLET PO SCH (08:19)
[2021-02-07] MEDS: PANTOPRAZOLE 40 MG TABLET PO SCH (08:19)
[2021-02-07] MEDS: FERROUS SULFATE 325 MG TABLET PO SCH (08:19)
[2021-02-07] MEDS: ASPIRIN EC 81 MG TABLET PO SCH (08:19)
[2021-02-07] MEDS: busPIRone 15 MG TABLET PO SCH (08:19)
== END 2021-02-07 10:00 | disposition home or self-care (01) | DRG 372 ==
LOC: EDUNIT# → EDBD → N.ED 19:47 → N.EDINP 19:47 → N.TELEN 23:53
PROVIDERS: ADMIT Family Medicine; ATTEND Family Medicine

== ENCOUNTER 2021-02-16 08:14 | Inpatient (IN) ==
[2021-02-16] MEDS ORDERED: FUROSEMIDE 40 MG/4 ML VIAL IV STA (08:23)
[2021-02-16] MEDS ORDERED: methylPREDNISolone SOD SUC 125 MG/2 ML VIAL IV STA (08:23)
[2021-02-16] MEDS ORDERED: MORPHINE 4 MG/1 ML VIAL IV STA (08:24)
[2021-02-16] MEDS ORDERED: hydrALAZINE 20 MG/1 ML VIAL IV STA (08:24)
[2021-02-16] MEDS ORDERED: ALBUTEROL NEB SOLN 5 MG/ML 20 ML/BOTTLE CONT NEB SCH (08:30)
[2021-02-16 08:50] LABS: ABG Base Excess -1.4 MMOL/L (-2.5-2.5); ABG HCO3 23.3 MMOL/L (20-26); ABG Oxygen Saturation 99.5 % (95-100); ABG PCO2 54.2 MM HG (35-48); ABG PH 7.297 (7.35-7.45); ABG TCO2 22.7 MMOL/L (23-27)
[2021-02-16 08:51] LABS: Basophils # 0.1 10*3/uL (0.0-0.2); Basophils % 0.2 % (0.0-0.8); Eosinophils # 0.1 10*3/uL (0.0-0.87); Eosinophils % 0.4 % (0.00-10.9); Hematocrit 47.1 VOL% (42.0-52.0); Hemoglobin 15.7 GM/DL (14.0-18.0); Immature Granulocytes % 0.8 %; Immature Granulocytes Absolute 0.19 #; Lymphocytes # 1.1 10*3/uL (1.4-4.0); Lymphocytes % 4.6 % (21.2-54.2); Mean Corpuscular HGB Conc 33.3 GM/DL (32-36); Mean Corpuscular Volume 100.9 FL (87-102); Mean Platelet Volume 10.8 FL (9.6-12.0); Monocytes % 3.8 % (1.7-12.7); Neutrophils % 90.2 % (38.7-73.9); Platelet Count 330 T/CUMM (130-400); Red Blood Count 4.67 MC/CUMM (3.8-5.5); Red Cell Distribution Width 15.1 % (9.3-17.3); White Blood Count 23.3 T/CUMM (4-12)
[2021-02-16 09:15] LABS: Eosinophils 1 % (0-10); Lymphocytes 5 % (20-55); Platelet Estimate Adequate; Segmented Neutrophils 86 % (50-85); Total Cells Counted 100
[2021-02-16 09:16] LABS: Albumin 3.3 G/DL (3.4-5.0); Bilirubin,Total 1.3 MG/DL (0.2-1.0); Calcium 8.4 MG/DL (8.5-10.1); Osmolality,Calculated 279.7 MOS/KG (273-304); Potassium 4.3 MMOL/L (3.5-5.1); Total Protein 6.8 G/DL (6.4-8.2)
[2021-02-16] MEDS ORDERED: MAGNESIUM SULF RIDER 50 ML IV ONE (09:40)
[2021-02-16] MEDS ORDERED: MAGNESIUM SULF RIDER 2 GM in PREMIX 1 EACH IV STA (09:41)
[2021-02-16] MEDS ORDERED: SODIUM CHLORIDE 0.9% 1,000 ML IV SCH (12:44)
[2021-02-16] MEDS ORDERED: ONDANSETRON 4 MG/2 ML VIAL IV PRN (12:44)
[2021-02-16] MEDS: methylPREDNISolone SOD SUC 125 MG/2 ML VIAL IV SCH ×3 (13:36→23:18)
[2021-02-16] MEDS: VANCOMYCIN 50 MG/ML 60 ML/BOTTLE PO SCH ×2 (14:27→22:05)
[2021-02-16] MEDS: ALBUTEROL 2.5 MG/3 ML NEB RESP TX SCH ×3 (14:56→22:00)
[2021-02-16] MEDS ORDERED: NITROGLYCERIN SL 0.4 MG TABLET SL PRN (16:13)
[2021-02-16] MEDS ORDERED: VANCOMYCIN PO SCH (16:15)
[2021-02-16] MEDS: BUDESONIDE 0.25 MG/2 ML NEB RESP TX SCH (19:14)
[2021-02-16] MEDS: ALBUTEROL/IPRATROPIUM 3 ML NEB RESP TX SCH (19:14)
[2021-02-16] MEDS: ZALEPLON 5 MG CAPSULE PO PRN (20:47)
[2021-02-16] MEDS: MAGNESIUM OXIDE 400 MG TABLET PO SCH (20:47)
[2021-02-16] MEDS: busPIRone 15 MG TABLET PO SCH (20:48)
[2021-02-16] MEDS: DOCUSATE SODIUM 100 MG CAPSULE PO SCH (20:48)
[2021-02-16] MEDS: FERROUS SULFATE 325 MG TABLET PO SCH (20:48)
[2021-02-16] MEDS: PRIMIDONE 50 MG TABLET PO SCH (20:48)
[2021-02-16] MEDS ORDERED: FUROSEMIDE 40 MG/4 ML VIAL IV SCH (21:00)
[2021-02-17] MEDS: ALBUTEROL/IPRATROPIUM 3 ML NEB RESP TX SCH ×4 (01:31→19:44)
[2021-02-17] MEDS: MELATONIN 3 MG TABLET PO PRN ×2 (01:53→21:54)
[2021-02-17] MEDS: ALBUTEROL 2.5 MG/3 ML NEB RESP TX SCH ×3 (02:00→11:07)
[2021-02-17] MEDS: methylPREDNISolone SOD SUC 125 MG/2 ML VIAL IV SCH (05:00)
[2021-02-17] MEDS: VANCOMYCIN 50 MG/ML 60 ML/BOTTLE PO SCH ×3 (05:00→21:46)
[2021-02-17] MEDS: BUDESONIDE 0.25 MG/2 ML NEB RESP TX SCH ×2 (07:15→19:44)
[2021-02-17] MEDS ORDERED: SPIRONOLACTONE 25 MG TABLET PO SCH (09:00)
[2021-02-17] MEDS ORDERED: FUROSEMIDE 20 MG TABLET PO SCH (09:00)
[2021-02-17] MEDS ORDERED: LOSARTAN 50 MG TABLET PO SCH (09:00)
[2021-02-17] MEDS: PANTOPRAZOLE 40 MG TABLET PO SCH (09:22)
[2021-02-17] MEDS: PRIMIDONE 50 MG TABLET PO SCH ×2 (09:22→21:07)
[2021-02-17] MEDS: ASPIRIN EC 81 MG TABLET PO SCH (09:22)
[2021-02-17] MEDS: FERROUS SULFATE 325 MG TABLET PO SCH ×2 (09:22→21:06)
[2021-02-17] MEDS: SACUBITRIL/VALSARTAN 49-51 MG TABLET PO SCH ×2 (09:22→21:05)
[2021-02-17] MEDS: MAGNESIUM OXIDE 400 MG TABLET PO SCH ×2 (09:22→21:06)
[2021-02-17] MEDS: FLUoxetine 10 MG CAPSULE PO SCH (09:22)
[2021-02-17] MEDS: METOPROLOL SUCCINATE XL 25 MG TABLET PO SCH (09:22)
[2021-02-17] MEDS: busPIRone 15 MG TABLET PO SCH ×2 (09:23→21:05)
[2021-02-17] MEDS: FUROSEMIDE 40 MG TABLET PO SCH ×2 (09:23→15:17)
[2021-02-17] MEDS: DOCUSATE SODIUM 100 MG CAPSULE PO SCH ×2 (09:23→21:05)
[2021-02-17] MEDS: POTASSIUM CHLORIDE 10 MEQ TABLET PO SCH (09:23)
[2021-02-17] MEDS: methylPREDNISolone SOD SUC 40 MG/1 ML VIAL IV SCH ×3 (09:24→16:36)
[2021-02-17 09:52] LABS: Troponin I 0.102 NG/ML (0.00-0.045)
[2021-02-17] MEDS: ZALEPLON 5 MG CAPSULE PO PRN (21:07)
[2021-02-18] MEDS: ALBUTEROL/IPRATROPIUM 3 ML NEB RESP TX SCH ×4 (00:13→19:18)
[2021-02-18] MEDS: methylPREDNISolone SOD SUC 40 MG/1 ML VIAL IV SCH ×3 (00:55→21:56)
[2021-02-18] MEDS: ACETAMINOPHEN 325 MG TABLET PO PRN ×2 (01:02→13:50)
[2021-02-18] MEDS: VANCOMYCIN 50 MG/ML 60 ML/BOTTLE PO SCH ×3 (06:26→21:57)
[2021-02-18] MEDS: BUDESONIDE 0.25 MG/2 ML NEB RESP TX SCH ×2 (06:52→19:18)
[2021-02-18] MEDS: DOCUSATE SODIUM 100 MG CAPSULE PO SCH ×2 (09:07→21:18)
[2021-02-18] MEDS: busPIRone 15 MG TABLET PO SCH ×2 (09:07→21:18)
[2021-02-18] MEDS: POTASSIUM CHLORIDE 10 MEQ TABLET PO SCH (09:07)
[2021-02-18] MEDS: MAGNESIUM OXIDE 400 MG TABLET PO SCH ×2 (09:07→21:19)
[2021-02-18] MEDS: FUROSEMIDE 40 MG TABLET PO SCH ×2 (09:07→17:00)
[2021-02-18] MEDS: PRIMIDONE 50 MG TABLET PO SCH ×2 (09:08→21:19)
[2021-02-18] MEDS: SACUBITRIL/VALSARTAN 49-51 MG TABLET PO SCH ×2 (09:08→21:18)
[2021-02-18] MEDS: FERROUS SULFATE 325 MG TABLET PO SCH ×2 (09:08→21:19)
[2021-02-18] MEDS: METOPROLOL SUCCINATE XL 25 MG TABLET PO SCH (09:08)
[2021-02-18] MEDS: ASPIRIN EC 81 MG TABLET PO SCH (09:08)
[2021-02-18] MEDS: PANTOPRAZOLE 40 MG TABLET PO SCH (09:08)
[2021-02-18] MEDS: FLUoxetine 10 MG CAPSULE PO SCH (09:08)
[2021-02-18] MEDS: SPIRONOLACTONE 25 MG TABLET PO SCH (21:18)
[2021-02-18] MEDS: MELATONIN 3 MG TABLET PO PRN (21:20)
[2021-02-18] MEDS: ZALEPLON 5 MG CAPSULE PO PRN (21:20)
[2021-02-19] MEDS: ALBUTEROL/IPRATROPIUM 3 ML NEB RESP TX SCH ×4 (01:00→20:22)
[2021-02-19 06:12] LABS: Hematocrit 45.5 VOL% (42.0-52.0); Hemoglobin 15.1 GM/DL (14.0-18.0); Immature Granulocytes % 0.8 %; Immature Granulocytes Absolute 0.08 #; Lymphocytes # 0.4 10*3/uL (1.4-4.0); Lymphocytes % 3.8 % (21.2-54.2); Mean Corpuscular HGB Conc 33.2 GM/DL (32-36); Mean Corpuscular Volume 99.1 FL (87-102); Mean Platelet Volume 11.4 FL (9.6-12.0); Monocytes % 4.7 % (1.7-12.7); Neutrophils % 90.7 % (38.7-73.9); Platelet Count 274 T/CUMM (130-400); Red Blood Count 4.59 MC/CUMM (3.8-5.5); Red Cell Distribution Width 14.6 % (9.3-17.3); White Blood Count 10.5 T/CUMM (4-12)
[2021-02-19 06:37] LABS: Albumin 2.8 G/DL (3.4-5.0); Bilirubin,Direct 0.14 MG/DL (0.0-0.20); Bilirubin,Indirect 0.6 MG/DL (0.0-1.0); Bilirubin,Total 0.7 MG/DL (0.2-1.0); Calcium 8.5 MG/DL (8.5-10.1); Osmolality,Calculated 285.7 MOS/KG (273-304); Potassium 4.8 MMOL/L (3.5-5.1); Total Protein 5.7 G/DL (6.4-8.2)
[2021-02-19] MEDS: VANCOMYCIN 50 MG/ML 60 ML/BOTTLE PO SCH ×3 (07:02→22:00)
[2021-02-19] MEDS: BUDESONIDE 0.25 MG/2 ML NEB RESP TX SCH ×2 (07:11→20:22)
[2021-02-19] MEDS: PRIMIDONE 50 MG TABLET PO SCH ×2 (08:36→20:48)
[2021-02-19] MEDS: PANTOPRAZOLE 40 MG TABLET PO SCH (08:36)
[2021-02-19] MEDS: FUROSEMIDE 40 MG TABLET PO SCH ×2 (08:36→15:06)
[2021-02-19] MEDS: METOPROLOL SUCCINATE XL 25 MG TABLET PO SCH (08:36)
[2021-02-19] MEDS: POTASSIUM CHLORIDE 10 MEQ TABLET PO SCH (08:36)
[2021-02-19] MEDS: SACUBITRIL/VALSARTAN 49-51 MG TABLET PO SCH ×2 (08:36→20:48)
[2021-02-19] MEDS: FERROUS SULFATE 325 MG TABLET PO SCH ×2 (08:36→20:48)
[2021-02-19] MEDS: ASPIRIN EC 81 MG TABLET PO SCH (08:36)
[2021-02-19] MEDS: busPIRone 15 MG TABLET PO SCH ×2 (08:37→20:48)
[2021-02-19] MEDS: DOCUSATE SODIUM 100 MG CAPSULE PO SCH ×2 (08:37→20:48)
[2021-02-19] MEDS: FLUoxetine 10 MG CAPSULE PO SCH (08:37)
[2021-02-19] MEDS: MAGNESIUM OXIDE 400 MG TABLET PO SCH ×2 (08:37→20:48)
[2021-02-19] MEDS: methylPREDNISolone SOD SUC 40 MG/1 ML VIAL IV SCH (08:37)
[2021-02-19] MEDS: SPIRONOLACTONE 25 MG TABLET PO SCH (08:37)
[2021-02-19 09:48] LABS: Band Neutrophils 1 % (0-10); Lymphocytes 6 % (20-55); Segmented Neutrophils 86 % (50-85); Total Cells Counted 100
[2021-02-19 09:49] LABS: Anisocytosis Slight; Macrocytosis Slight; Platelet Estimate Normal
[2021-02-19] MEDS: ACETAMINOPHEN 325 MG TABLET PO PRN (20:48)
[2021-02-19] MEDS: ZALEPLON 5 MG CAPSULE PO PRN (20:48)
[2021-02-19] MEDS: MELATONIN 3 MG TABLET PO PRN (20:48)
[2021-02-20] MEDS: ALBUTEROL/IPRATROPIUM 3 ML NEB RESP TX SCH ×2 (01:30→07:39)
[2021-02-20] MEDS: ACETAMINOPHEN 325 MG TABLET PO PRN (02:25)
[2021-02-20] MEDS: VANCOMYCIN 50 MG/ML 60 ML/BOTTLE PO SCH (05:59)
[2021-02-20 07:04] LABS: Calcium 8.2 MG/DL (8.5-10.1); Osmolality,Calculated 281.7 MOS/KG (273-304); Potassium 3.9 MMOL/L (3.5-5.1)
[2021-02-20] MEDS: BUDESONIDE 0.25 MG/2 ML NEB RESP TX SCH (07:39)
[2021-02-20 08:50] VITALS: BP 129/60
[2021-02-20] MEDS: MAGNESIUM OXIDE 400 MG TABLET PO SCH (08:54)
[2021-02-20] MEDS: busPIRone 15 MG TABLET PO SCH (08:55)
[2021-02-20] MEDS: PRIMIDONE 50 MG TABLET PO SCH (08:55)
[2021-02-20] MEDS: SPIRONOLACTONE 25 MG TABLET PO SCH (08:55)
[2021-02-20] MEDS: DOCUSATE SODIUM 100 MG CAPSULE PO SCH (08:55)
[2021-02-20] MEDS: POTASSIUM CHLORIDE 10 MEQ TABLET PO SCH (08:55)
[2021-02-20] MEDS: SACUBITRIL/VALSARTAN 49-51 MG TABLET PO SCH (08:56)
[2021-02-20] MEDS: FLUoxetine 10 MG CAPSULE PO SCH (08:56)
[2021-02-20] MEDS: FERROUS SULFATE 325 MG TABLET PO SCH (08:56)
[2021-02-20] MEDS: ASPIRIN EC 81 MG TABLET PO SCH (08:56)
[2021-02-20] MEDS: FUROSEMIDE 40 MG TABLET PO SCH (08:56)
[2021-02-20] MEDS ORDERED: predniSONE 20 MG TABLET PO SCH (09:00)
[2021-02-20] MEDS: PANTOPRAZOLE 40 MG TABLET PO SCH (09:06)
[2021-02-20] MEDS: METOPROLOL SUCCINATE XL 25 MG TABLET PO SCH (09:07)
== END 2021-02-20 10:10 | disposition home or self-care (01) | DRG 291 ==
LOC: EDUNIT# → EDBD → N.ED 08:14 → N.EDINP 10:24 → N.TELEN 13:16
PROVIDERS: ADMIT Family Medicine; ATTEND Family Medicine